=== PATIENT | female | born 1990 | race Caucasian/White ===

== ENCOUNTER → 2017-03-09 | Outpatient (CLI) | payer OTHER ==
[~2017-03-09] MED LIST: CIPRO500 MG PO; KEFLEX500 MG PO; NAPROSYN500 MG PO; PYRIDIUM200 MG PO
[2017-03-09 18:24] LABS: ADD MIUA? YES; BILIRUBIN NEGATIVE; BLOOD NEGATIVE; COLOR STRAW ((YELLOW)); GLUCOSE (STRIP) NEGATIVE; KETONES NEGATIVE; LEUKOCYTES SMALL; NITRITE NEGATIVE; PROTEIN (STRIP) NEGATIVE; SPECIFIC GRAVITY 1.006 (1.000-1.030); UROBILINOGEN 0.2 MG/DL (0.2-1.0)
[2017-03-09 18:41] LABS: BACTERIA NONE SEEN /HPF; EPITHELIAL CELLS RARE /HPF; MUCUS TRACE /LPF; RED BLOOD CELLS 0-5 /HPF (0-5); WHITE BLOOD CELLS 15-20 /HPF (0-5)
== END | disposition home or self-care (01) ==
LOC: LAB 15:45
PROVIDERS: Family Medicine
DX: N30.00 Acute cystitis without hematuria (principal)
CPT/HCPCS: 81003; 87086

== ENCOUNTER 2018-05-11 12:13 | Emergency (ER) | payer OTHER ==
[~2018-05-11] VITALS: Ht 162.6 cm; Wt 66.0 kg
[2018-05-11] MEDS ORDERED: birth control (12:53)
[2018-05-11] MEDS ORDERED: MOTRIN600 MG PO (13:24)
[2018-05-11 13:40] VITALS: BP 125/76
== END 2018-05-11 14:14 | disposition home or self-care (01) ==
LOC: EME 12:13
DX: M25.561 Pain in right knee (principal); M25.461 Effusion, right knee; M25.661 Stiffness of right knee, not elsewhere classified; X58.XXXA Exposure to other specified factors, initial encounter; Y99.0 Civilian activity done for income or pay
CPT/HCPCS: 73564; 99281; 99284